=== PATIENT | female | born 1985 | race Hispanic/Latino ===

== ENCOUNTER 2016-08-10 16:08 | Emergency (ER) | payer SELFPAY ==
[~2016-08-10] VITALS: Ht 152.4 cm; Wt 65.9 kg
[~2016-08-10 16:08] MED LIST: PREN1TAB73 PO
[2016-08-10 16:15] VITALS: BP 110/70; PULSE 104; RESP 16; O2SAT 98
[2016-08-10] MEDS ORDERED: 0.9% Sodium Chloride 1,000 ML IV ONE (16:39)
[2016-08-10] MEDS ORDERED: Ondansetron 2 mg/mL 2 mL Inj IVPUSH ONE (16:40)
[2016-08-10 16:55] LABS: APPEARANCE,URINE CLOUDY (CLEAR,HAZY); COLOR,URINE YELLOW (YELLOW)
[2016-08-10 16:56] LABS: OCCULT BLOOD,URINE SMALL (NEGATIVE); UROBILINOGEN,URINE NORMAL (NORMAL)
[2016-08-10 17:06] LABS: BASOPHILS % (AUTO) 0.1 % (0-3); EOSINOPHILS % (AUTO) 0.4 % (0-5); MONOCYTES % (AUTO) 2.6 % (4-12); Mean Corpuscular Hemoglobin 29.1 pg (27.0-35.0); NEUTROPHILS % (AUTO) 91.9 % (40-74); Platelet Count 289 bil/L (150-400)
[2016-08-10 17:09] VITALS: BP 102/64; PULSE 80; RESP 16; O2SAT 98
[2016-08-10 17:34] LABS: Lipase 25 U/L (13-60); Magnesium 1.9 mg/dL (1.6-2.6)
[2016-08-10] MEDS ORDERED: HYDROmorphone 0.5 mg/0.5 mL iSecure Syringe IVPUSH ONE (17:45)
[2016-08-10] MEDS ORDERED: LidocaineVisc 2%:Antacid 1:1 10 mL Syringe PO ONE (17:45)
--- NOTE | 2016-08-10 18:07 | ED.REPORT ---
HPI-General Illness Date of Service August 10, 2016 ED Provider: Ralph Chaudhry MD Patient is a healthy 31 year old female who presents to the ED complaining of dull/vague abdominal pain onset 3 days ago. Her pain is worse when she eats and is located in the epigastrium. Associated symptoms include generalized weakness, diarrhea, dysuria, and nausea. She denies fever, vomiting, or any other symptoms. She has had similar symptoms intermittently in the past. She denies any history of abdominal surgeries. She denies vomiting though reports mild nausea. No hematuria. No cough. Nursing Notes Stated Complaint: ABDOMINAL PAIN Chief Complaint: Female Abdominal Pain Nursing Notes Reviewed: Yes Allergies: Coded Allergies: No Known Allergies (Verified , 08/10/16) Scheduled Omeprazole (Omeprazole) 20 Mg Tablet.dr 20 MG PO BID Vit/Fe Fumarate/Fa-Expunged Drug, Do (-Expunged Drug, Do Not Renew!) 1 Tab Tablet 1 TAB PO DAILY Sulfamethoxazole/Trimeth 800-160 mg (Bactrim DS) 1 Each Tablet 1 TABLET PO BID General Time Seen by MD: 16:30 Chief Complaint Abdominal pain Hx Obtained From: Patient, Check Processing Clerk Arrived By: Walk-in Sudden in Onset?: Yes Onset Occurred: 3 days ago Symptom Duration: Since onset Past Medical History Past Medical History denies Past Surgical History Reports: Reports: Tubal ligation Smoking History Unknown if Ever Smoker Social History Alcohol Use: "Social" Other Social History: Good social support, Local resident Ambulatory Status Independent Review of Systems Full Review of Systems Constitutional: Reports: Weakness - generalized, Denies: Fever GI: Reports: Abdominal pain, Diarrhea, Nausea, Denies: Vomiting Female: Reports: Dysuria Complete sys rev & neg: except as marked. Physical Exam Vital Signs Vital Signs Date Time Temp Pulse Resp B/P Pulse Ox O2 Delivery O2 Flow Rate FiO2 08/10/16 19:10 82 16 129/76 97 Room Air 08/10/16 17:09 37.2 80 16 102/64 98 08/10/16 16:15 37.2 104 16 110/70 98 Room Air General/Constitutional: Well-developed, Well-nourished Head / Eyes: Atraumatic, Normocephalic Neck: Full range of motion Skin: Warm, Dry Neurologic: Alert, Oriented, Nonfocal Psychiatric: Mood/affect normal, Behavior normal, Normal thought content Respiratory / Chest: Breath sounds NL, Breath sounds = bilat, No respiratory distress Cardiovascular: Heart rate NL, Regular rhythm, Heart sounds NL, No gallop, No murmurs, No rubs Abdomen: Soft, No guarding, No rebound, BS normoactive, No distention Tenderness/Guarding/Rebound: Positive: Tender RUQ... (Mild), Tender epigastric Skin: Color NL, No rash, Warm, Dry Interpretation & Diagnostics Lab Results Interpretation Result Diagram: 08/10/16 1639 08/10/16 1655 Test 08/10/16 16:25 08/10/16 16:39 08/10/16 16:55 Urine Color Yellow (YELLOW) Urine Appearance Cloudy (CLEAR,HAZY) Urine pH 5.0 (5.0-8.0) Urine Specific [place] 1.030 (1.003-1.035) Urine Protein Negativemg/dL (NEG,TRACE) Urine Glucose (UA) Negativemg/dL (NEGATIVE) Urine Ketones Tracemg/dL (NEGATIVE) Urine Occult Blood Small (NEGATIVE) Urine Nitrite Positive (NEGATIVE) Urine Bilirubin Negative (NEGATIVE) Urine Urobilinogen Normalmg/dL (NORMAL) Urine Leukocyte Esterase Negative (NEGATIVE) Urine RBC 0-2/hpf (0-2) Urine WBC 0-5/hpf (0-5) Urine Epithelial Cells Moderate/hpf (NONE-MOD) Urine Crystals None seen (NONE SEEN) Urine Bacteria Many/hpf (NONE-FEW) Urine Hyaline Casts None/lpf (NONE) Urine Granular Casts None seen (NONE SEEN) Urine Waxy Casts None seen (NONE SEEN) Urine Red Blood Cell Casts None seen (NONE SEEN) Urine White Blood Cell Casts None seen (NONE SEEN) Urine Mucus None seen (None Seen) Urine Trichomonas None seen (NONE SEEN) Urine Yeast None (NONE SEEN) Urinalysis Comment None Urine Culture Reflexed Indicated White Blood Count 11.4th/mm3 (3.8-10.1) Red Blood Count 4.30mil/mm3 (3.90-5.20) Hemoglobin 12.5g/dL (12.0-15.6) Hematocrit 37.4% (35.0-46.0) Mean Corpuscular Volume 87.0fL (81-100) Mean Corpuscular Hemoglobin 29.1pg (27.0-35.0) Mean Corpuscular Hemoglobin Concent 33.4% (32.0-37.0) Red Cell Distribution Width 12.4% (12.3-15.4) Platelet Count 289bil/L (150-400) Neutrophils (%) (Auto) 91.9% (40-74) Lymphocytes (%) (Auto) 4.7% (14-46) Monocytes (%) (Auto) 2.6% (4-12) Eosinophils (%) (Auto) 0.4% (0-5) Basophils (%) (Auto) 0.1% (0-3) Sodium Level 132mEq/L (134-144) Potassium Level 3.8mEq/L (3.5-5.2) Chloride Level 96mEq/L (97-108) Carbon Dioxide Level 20mmol/L (18-29) Blood Urea Nitrogen 10mg/dL (6-20) Creatinine 0.42mg/dL (0.57-1.00) Estimat Glomerular Filtration Rate 252mL/min (>59) Glucose Level 118mg/dL (60-99) Calcium Level 8.5mg/dL (8.5-10.1) Magnesium Level 1.9mg/dL (1.6-2.6) Total Bilirubin 0.4mg/dL (0.0-1.2) Aspartate Amino Transf (AST/SGOT) 24U/L (0-50) Alanine Aminotransferase (ALT/SGPT) 14U/L (0-32) Alkaline Phosphatase 74U/L (25-150) Total Protein 8.0g/dL (6.4-8.4) Albumin 4.5g/dL (3.4-5.0) Lipase 25U/L (13-60) Human Chorionic Gonadotropin, Qual Negative (Negative) Hold Rico Top Tube Received (Received) Lab Results Interpretation: Urine preg negative US Focused non-OB Pelvis IMPRESSION: Source of epigastric pain is not seen however the portions of the retroperitoneum are poorly seen due to bowel gas and specifically the pancreas was not seen. No free fluid is identified, but depending on the clinical status followup by CT scanning may become necessary. Dictated by: Romero Wood M.D. on 08/10/2016 at 18:45 Approved by: Romero Wood M.D. on 08/10/2016 at 18:47 Exam Performed by: Allied health pract Re-Eval/Medical Decision Med Decision/Clinical Course Patient is a generally healthy 31-year-old female who presents with epigastric abdominal discomfort associated with eating. She additionally complains of urinary frequency and dysuria. Here in the emergency department the patient is afebrile with stable vital signs and no apparent distress. Examination reveals mild epigastric discomfort to firm palpation. Laboratory studies notable as below: Leukocytes 11.4, CBC otherwise unremarkable CMP unremarkable Preg neg Lipase within normal limits UA shows : positive nitrites, many bacteria, negative leuk esterase, few white cells Here the patient was treated with a GI cocktail, Zofran for nausea and IV fluids. She reported drastic improvement in her symptoms after receiving a GI cocktail. I suspect that her symptoms are related to peptic ulcer disease/ gastritis. I will start her on omeprazole and have her follow up with her primary care physician. Additionally it appears the patient has a urinary tract infection and I will treat her with a 7 day course of antibiotics. I do not feel that any abdominal imaging studies are indicated at this time. Serial abdominal examinations were benign. Prior to discharge follow-up and return precautions were reviewed in detail with the patient who verbalized understanding and agreement with the plan. The patient was discharged in stable condition. Time of Eval: 19:04 Re-Evaluation/Progress Note: Discussed plan for discharge. Patient understands and agrees with plan. All questions addressed at this time. Counseled Regarding: Diagnosis, Lab results, Need for follow-up, When/why to return to ED Discharge & Departure Primary Impression: Urinary tract infection Urinary tract infection type: site unspecified Hematuria presence: without hematuria Qualified Code: N39.0 - Urinary tract infection, site not specified Additional Impressions: Gastritis Gastritis type: unspecified gastritis Chronicity: unspecified Gastritis bleeding: presence of bleeding unspecified Qualified Code: K29.70 - Gastritis , unspecified, without bleeding Epigastric pain Nausea Leukocytosis Leukocytosis type: unspecified Qualified Code: D72.829 - Elevated white blood cell count, unspecified Disposition: Home Discharge Condition All VS Reviewed: Yes Condition: Improved Additional Instructions: Thank you for seeking care at the emergency room. It is difficult for us to make definitive diagnoses in the ED but we believe that you are experiencing a urinary tract infection. Our primary goal today in the ED was to evaluate you for any life-threatening conditions. Your evaluation was reassuring. You will be discharged with a prescription for omeprazole and Bactrim. Take the Bactrim as directed for 7 days. You should follow-up with your primary doctor in the next week. You should return to the ED immediately if you develop fevers, vomiting, cough, shortness of breath, chest pain, lightheadedness, weakness or any other concerning signs or symptoms. Thank you for letting us partake in your care today. Referrals: [facility] (PCP) Scribe Attestation Portions of this note were transcribed by Ashley Matson. I, Dr. Chaudhry personally performed the history, physical exam and medical decision-making; I reviewed and confirmed the accuracy of the information in the transcribed note. Signed by: Ashley Matson 08/10/16, [id number] copies to: [facility] Ralph Chaudhry MD August 10, 2016 18:07 ASHLEY MATSON August 10, 2016 18:28
--- NOTE | 2016-08-10 18:49 | DRSVH ---
PROCEDURE: US ABDOMEN ([id number]) INDICATIONS: ruq pain TECHNIQUE: Real-time scanning was performed of the abdominal and retroperitoneal organs, with image documentatio n. COMPARISON: None. FINDINGS: Liver: Liver is normal in size and homogeneous in echotexture. Gallbladder: The gallbladder appears normal Biliary ducts: Intrahepatic bile ducts are non-dilated. Extrahepatic bile duct caliber measures 3.0 mm. Normal is 6-7 mm or less in diameter, or 10 mm or less post-cholecystectomy. Pancreas: Not seen due to bowel gas Spleen: Spleen is normal in size and homogeneous in echotexture. Kidneys: Kidneys are normal in size and echotexture. Right kidney measures 10.7 cm long; left kidne y measures 11.0 cm long. No hydronephrosis or nephrolithiasis. No solid masses. Aorta: Visualized aorta is normal in caliber at less than 3 cm. Iliacs: Proximal common iliac arteries are normal in caliber at less than 2.5 cm. IVC: Intrahepatic inferior vena cava is patent. Miscellaneous: No free abdominal fluid. IMPRESSION: Source of epigastric pain is not seen however the portions of the retroperitoneum are po emanuel seen due to bowel gas and specifically the pancreas was not seen. No free fluid is identified, but depending on the clinical status followup by CT scanning may become necessary. Dictated by: Romero Wood M.D. on 08/10/2016 at 18:45 Approved by: Romero Wood M.D. on 08/10/2016 at 18:47
[2016-08-10] MEDS ORDERED: SULF1TAB7 PO (19:01)
[2016-08-10] MEDS ORDERED: OMEP20TA86 PO (19:04)
[2016-08-10 19:10] VITALS: BP 129/76; PULSE 82; RESP 16; O2SAT 97
== END 2016-08-10 19:10 | disposition home or self-care (01) ==
LOC: SED 16:08
DX: N39.0 Urinary tract infection, site not specified (principal); B96.20 Unspecified Escherichia coli [E. coli] as the cause of diseases classified elsewhere; K29.70 Gastritis, unspecified, without bleeding; D72.829 Elevated white blood cell count, unspecified; R19.7 Diarrhea, unspecified
CPT/HCPCS: 36415; 76700; 80053; 81000; 81025; 83690; 83735; 84703; 85025; 87086; 87088; 87186; 96361; 96374; 96375; 99285; J1170; J2405; J7030